=== PATIENT | female | born 1945 | race Caucasian/White ===

== ENCOUNTER 2016-10-28 05:44 | Day surgery (SDC) | payer MEDICARE, OTHER ==
--- NOTE | ~2016-10-28 | HP ---
History And Physical [address] [place]. [address] NAME: IRENE CHANG : 41 STATUS : [facility] UNIT#: [id number] AGE: 71 ADM/REG DATE : 10/28/16 MR#: [id number] REPORT SERV DATE: 12/25/16 DICTATED BY: EVELIA DORAN III DATE: 12/25/16 REPORT STATUS : Draft TRANSCRIBED BY: MAMI DATE: 12/25/16 DATE OF ADMISSION: 10/28/2016 (This is the second history and physical on this patient, which was initially dictated prior to the surgery). HISTORY OF PRESENT ILLNESS: This 71-year-old female comes to the operating room for subclavian Port-A-Cath placement to allow for chronic IV access for chemotherapy. The patient is recently diagnosed with pancreatic cancer. She is status post Whipple procedure, and is now ready to begin chemotherapy. We have been asked by her medical oncologist to place a Port-A-Cath. PAST MEDICAL HISTORY: See previously dictated history and physical. PHYSICAL EXAMINATION: Please see previously dictated history and physical. ASSESSMENT: 71-year-old female with pancreatic cancer, with need for subclavian vein Port-A- Cath placement to allow for chronic IV access for chemotherapy. PLAN: The patient comes to the operating room now for subclavian vein Port-A-Cath placement. This procedure, the risks, benefits, and alternatives, including but not limited to the risk for bleeding, infection, pneumothorax, air embolus, pericardial tamponade, pneumothorax, failure of the port to function, infection of the port or subclavian vein thrombosis requiring removal of the port, dislodgement of the Port-A-Cath tubing requiring extraction, and unforeseen complications including deep venous thrombosis, pulmonary embolus, myocardial infarction, stroke, pneumonia, and were fully explained to the patient prior to the surgery. Her questions were answered. She understood the risks and agreed to the surgery as planned. LOIS/MAMI Evelia Doran III, M.D. / [id number] CC: Evelia Doran III, M.D.
--- NOTE | ~2016-10-28 | PREOPHP ---
PreOp History and Physical [address] [place]. [address] NAME: IRENE CHANG : 41 STATUS : [facility] PAT#: [id number] AGE: 71 ADM/REG DATE : MR#: [id number] REPORT SERV DATE: 10/22/16 DICTATED BY: EVELIA DORAN III DATE: 10/22/16 REPORT STATUS : Draft TRANSCRIBED BY: MODL DATE: 10/22/16 HISTORY OF PRESENT ILLNESS: This 71-year-old female comes to the operating room for subclavian Port-A-Cath placement to allow for chronic IV access for chemotherapy for pancreatic cancer. The patient was recently diagnosed with pancreatic cancer. She is status post Whipple procedure. She comes now for Port-A-Cath placement to allow for chronic IV access for chemotherapy at the request of her medical oncologist. PAST MEDICAL HISTORY: 1. History of pancreatic cancer, stage IIB, status post Whipple procedure with need for Port-A-Cath placement to allow for chronic IV access for chemotherapy. 2. Chronic kidney disease. 3. Type 1 diabetes mellitus. ALLERGIES: NONE. MEDICATIONS: As per medication list. PAST SURGICAL HISTORY: Includes a Whipple procedure recently performed. REVIEW OF SYSTEMS: The patient also has history of hypertension, chronic liver disease, and thyroid disease. PHYSICAL EXAMINATION: GENERAL: This is a female, in no acute distress. She is alert and oriented x3. HEENT: Unremarkable. Cranial nerves 2 through 12 were normal. LUNGS: Clear. CARDIAC: Normal. ABDOMEN: Soft, nontender. ASSESSMENT: 1. A 71-year-old female with stage IIB pancreatic cancer, with need for subclavian vein Port-A-Cath placement. 2. Hypertension. 3. Diabetes mellitus. 4. History of chronic liver disease. PLAN: The patient comes to the operating room now for subclavian Port-A-Cath placement. This procedure, the risks, benefits, and alternatives, including not limited to the risk for bleeding, infection, pneumothorax, air embolus, pericardial tamponade, failure of the port to function, infection of the port or subclavian vein thrombosis requiring removal of the port, dislodgement of the Port-A-Cath tubing requiring extraction, and unforeseen complications including deep venous thrombosis, pulmonary embolus, myocardial infarction, stroke, pneumonia, and , have been explained to the patient prior to surgery. Her questions have been answered. She understands the risks and agrees to the surgery as planned. PreOp History and Physical [address] [address] NAME: IRENE CHANG NOVEMBER : [birth year] STATUS : PRE [facility] PAT#: [id number] AGE: 71 ADM/REG DATE : MR#: [id number] REPORT SERV DATE: 10/22/16 DICTATED BY: EVELIA DORAN III DATE: 10/22/16 REPORT STATUS : Draft TRANSCRIBED BY: MAMI DATE: 10/22/16 Miguelangel/MAMI Evelia Doran III, M.D. / [id number] CC: Evelia Doran III, M.D.
--- NOTE | ~2016-10-28 | OP ---
Record Of Operation [facility] [address] [place]. [address] NAME: IRENE CHANG : 41 STATUS : [facility]#: [id number] AGE: 71 ADM/REG DATE : 10/28/16 MR#: [id number] REPORT SERV DATE: 10/28/16 DICTATED BY: EVELIA DORAN III DATE: 10/28/16 REPORT STATUS : Draft TRANSCRIBED BY: MAMI DATE: 10/28/16 DATE OF PROCEDURE: 10/28/2016 PREOPERATIVE DIAGNOSIS: History of ampullary carcinoma, with need for Port-A-Cath placement to allow for chronic IV access for chemotherapy. POSTOPERATIVE DIAGNOSIS: History of ampullary carcinoma, with need for Port-A-Cath placement to allow for chronic IV access for chemotherapy. PROCEDURE: Right subclavian Port-A-Cath placement with fluoroscopy. ANESTHESIA: General with intubation. COMPLICATIONS: None. ESTIMATED BLOOD LOSS: Less than 5 mL. SPECIMENS: None. DRAINS: None. LAP AND SPONGE COUNT: Correct x3. BRIEF HISTORY: This 71-year-old female who was recently diagnosed with ampullary cancer. The patient is status post Whipple procedure, and is now to begin adjuvant chemotherapy. We have been asked by her medical oncologist to place a Port-A-Cath to allow for chronic IV access for chemotherapy. This procedure, the risks, benefits, and alternatives, including, but not limited to the risk for bleeding, infection, pneumothorax, air embolus, pericardial tamponade, failure of the port to function, infection of the port, or subclavian vein thrombosis requiring removal of the port, dislodgement of the Port-A-Cath tubing requiring extraction, and unforeseen complications including deep venous thrombosis, pulmonary embolus, myocardial infarction, stroke, pneumonia, and , were explained to the patient prior to surgery. Her questions were answered. She understood the risks and agreed to surgery as planned. DESCRIPTION OF PROCEDURE: After being appropriately identified, and after discussing risks of surgery with the patient again in the preoperative area, the patient was taken to the operating room and placed in the supine position on the operating room table. General anesthesia was administered, and the patient was intubated without difficulty. The upper chest and neck areas were prepped and draped sterilely in the usual fashion. After an appropriate "time-out" per JCAHO standards, a needle was used to identify the right subclavian vein. The vein was identified on the first pass of the needle. A guidewire was passed through the needle and the needle was removed. Fluoroscopy was performed, confirming the tip of the guidewire to be in the correct position of superior vena cava. A small transverse incision was then made at the exit site of the guidewire from the skin. A subcutaneous infraclavicular pocket was made of the appropriate size for the Port-A-Cath [address] [place]. [address] NAME: IRENE CHANG NOVEMBER : 41 STATUS : [facility] PAT#: [id number] AGE: 71 ADM/REG DATE : 10/28/16 MR#: [id number] REPORT SERV DATE: 10/28/16 DICTATED BY: EVELIA DORAN III DATE: 10/28/16 REPORT STATUS : Draft TRANSCRIBED BY: MODL DATE: 10/28/16 housing. The Port-A-Cath housing was connected to the tubing. The Port-A-Cath housing and tubing were flushed with a heparin solution, and the tubing was cut to the appropriate length. The introducer was then placed over the guidewire. The guidewire and inner dilator were removed. The Port-A-Cath tubing was then placed through the sheath as the sheath was peeled away. This went very smoothly. The Port-A-Cath housing was positioned in the infraclavicular pocket. It was secured in place with 2-0 silk sutures. It was accessed with a Orellana needle and noted to aspirate blood easily. It was then flushed with heparin solution noted to flush easily. Repeat fluoroscopy was performed, confirming the tip of the Port-A-Cath tubing to be in the correct position in superior vena cava. Hemostasis was assured. The subcutaneous tissue was closed with a running 3-0 Vicryl suture. The skin was closed with running subcuticular 4-0 Monocryl stitch. The incision was injected with 0.5% Marcaine. Dressings were applied. Anesthesia was reversed, and the patient was taken to recovery room in stable condition. The patient tolerated the procedure well. The patient will be discharged later when stable and comfortable after the chest x-ray has been cleared per Radiology. The patient's family was advised that the wound should be kept clean and dry for 48 hours, that there should be no driving for 2-3 days after surgery or while using narcotics, and the patient shall resume usual medications. The patient was asked to return in two weeks for followup or sooner for any fever, chills, wound drainage, or other problems prior to that time. RHJ/ELISAL Evelia Doran III, M.D. / [id number] CC: Evelia Doran III, M.D.
[~2016-10-28 05:44] MED LIST: ACTOS15 PO; APRES25 PO; ASAB PO; AT25 PO; CALTRA600D PO; COLCH6 PO; COQ-10200 MG PO; CREON DR 3,0001 EACH PO; ESTRACE1 MG PO; FISH-EPA1000 MG PO; HUMALOG SC; HYDROCHLOROT25 MG PO; LANTUS SC; LOM PO; MULTIVIT/MIN PO; NORV5 PO; PAX20 PO; PERCOCET1 TA2 PO; PREVALITE4 G1 PO; PROMETRIUM PO; ROCALTROL 0.0.25 MCG PO; SYN.05 PO; TOPXL50 PO; VITAMIN D31000 UNIT PO; VITE1000 PO; ZOCOR20
[2017-02-21] MEDS ORDERED: LANTUS SC (18:38)
[2017-02-21] MEDS ORDERED: HUMALOG SC (18:38)
[2017-02-21] MEDS ORDERED: APRES25 PO (18:38)
[2017-02-21] MEDS ORDERED: SYN.05 PO (18:39)
[2017-02-21] MEDS ORDERED: TOPXL50 PO (18:39)
[2017-02-21] MEDS ORDERED: ZAROX2.5B PO (18:41)
[2017-02-21] MEDS ORDERED: GEMZAR PO (18:42)
[2017-02-21] MEDS ORDERED: PAX20 PO (18:48)
[2017-02-21] MEDS ORDERED: CENTRUM PO (18:50)
[2017-02-21] MEDS ORDERED: CO Q-10200 MG PO (18:50)
[2017-02-21] MEDS ORDERED: D 5000 PO (18:50)
[2017-02-21] MEDS ORDERED: VITE PO (18:50)
[2017-02-21] MEDS ORDERED: VISINE TEARS15 ML OPH (18:50)
[2017-02-23] MEDS ORDERED: LOP50 PO (12:02)
[2017-03-26] MEDS ORDERED: Z100 PO (21:18)
[2017-03-26] MEDS ORDERED: L80 PO (21:30)
[2017-03-27] MEDS ORDERED: ZAROX2.5B PO (16:20)
== END 2016-10-28 10:29 | disposition home or self-care (01) ==
LOC: SDC 05:44
PROVIDERS: Surgery
PROC: 0JB80ZZ Excision of Abdomen Subcutaneous Tissue and Fascia, Open Approach (ICD-10-PCS; 2016-10-28)
PROC: 05H533Z Insertion of Infusion Device into Right Subclavian Vein, Percutaneous Approach (ICD-10-PCS; principal; 2016-10-28 06:45)
DX: C24.1 Malignant neoplasm of ampulla of Vater (principal); I10 Essential (primary) hypertension; E78.5 Hyperlipidemia, unspecified; T81.89XA Other complications of procedures, not elsewhere classified, initial encounter; E11.40 Type 2 diabetes mellitus with diabetic neuropathy, unspecified; E03.9 Hypothyroidism, unspecified; E78.00 Pure hypercholesterolemia, unspecified; E21.5 Disorder of parathyroid gland, unspecified; K21.9 Gastro-esophageal reflux disease without esophagitis; M10.9 Gout, unspecified; M48.00 Spinal stenosis, site unspecified; M19.90 Unspecified osteoarthritis, unspecified site; D64.9 Anemia, unspecified; F17.210 Nicotine dependence, cigarettes, uncomplicated; F32.9 Major depressive disorder, single episode, unspecified; Z88.5 Allergy status to narcotic agent; Z88.8 Allergy status to other drugs, medicaments and biological substances; Z96.1 Presence of intraocular lens; Z98.41 Cataract extraction status, right eye; Z98.42 Cataract extraction status, left eye; Z90.89 Acquired absence of other organs; Z90.49 Acquired absence of other specified parts of digestive tract; Z79.4 Long term (current) use of insulin; Z79.818 Long term (current) use of other agents affecting estrogen receptors and estrogen levels; Z98.890 Other specified postprocedural states; Z79.899 Other long term (current) drug therapy
CPT/HCPCS: 11042; 71010; 71020; 77001; 80053; 82962; 85025; 93005; C1751; J0690; J2405; J3010